=== PATIENT | male | born 1970 | race Caucasian/White ===

== ENCOUNTER 2016-06-25 08:48 | Emergency (ER) | payer OTHER ==
--- NOTE | 2016-06-25 09:06 | CPEKG ---
Heart Rate: 85 RR Interval: 706 P-R Interval: 204 QRSD Interval: 86 QT Interval: 364 QTC Interval: 433 P [place]: 54 QRS [place]: 164 T Wave [place]: 0 EKG Severity - OTHERWISE NORMAL ECG - EKG Impression: SINUS RHYTHM EKG Impression: RIGHT AXIS DEVIATION Electronically Signed By: Kin Littlejohn 25-Jun-2016 14:02:18
[2016-06-25 09:19] LABS: % IMMATURE GRANULYOCYTES 0.5 % (0.0-1.1); ABSOLUTE IMMATURE GRANULOCYTES 0.02 10^3/uL (0.00-0.10); ADD DIFF? NO; ADD MORPH? NO; ADD SCAN? NO; ATYPICAL LYMPHOCYTE FLAG 30 (0-99); FRAGMENT RBC FLAG 0 (0-99); HEMATOCRIT 49.1 % (40.0-51.0); HEMOGLOBIN 17.5 g/dL (13.7-17.5); LEFT SHIFT FLG 0 (0-99); LIPEMIA HEMOLYSIS FLAG 90 (0-99); MEAN CELL HEMOGLOBIN 33.5 pg (27.9-34.1); MEAN CELL HEMOGLOBIN CONCENTR. 35.6 g/dL (32.4-36.7); MEAN CELL VOLUME 94.1 fL (81.5-99.8); MEAN PLATELET VOLUME 10.4 fL (8.7-11.7); PLATELET CLUMPS FLAG 0 (0-99); PLATELET COUNT 266 10^3/uL (150-400); RED BLOOD CELL COUNT 5.22 10^6/uL (4.40-6.38); RED CELL DISTRIBUTION WIDTH 11.9 % (11.5-15.2)
[2016-06-25 09:35] LABS: ANION GAP 11 mEq/L (8-16); CALCIUM 9.4 mg/dL (8.5-10.4); CARBON DIOXIDE 27 mEq/l (22-31); CHLORIDE 103 mEq/L (97-110); CREATININE 1.1 mg/dL (0.7-1.3); GLOMERULAR FILTRATION RATE > 60; GLUCOSE 73 mg/dL (70-100); POTASSIUM 4.2 mEq/L (3.5-5.2); SODIUM 141 mEq/L (134-144)
[2016-06-25 09:46] LABS: TROPONIN I < 0.012 ng/mL (0-0.034)
--- NOTE | 2016-06-25 10:14 | EDPHY ---
H & P Stated Complaint: L side CP intermittent since yesterday Time Seen by Provider: 06/25/16 09:06 HPI/ROS: CHIEF COMPLAINT: Chest pain HISTORY OF PRESENT ILLNESS: The patient presents to the ED with a 1 day history of intermittent left-sided chest pain. The patient describes a sharp a focal area of discomfort located lateral to his pectoralis muscle. The patient reports that pain is not precipitated by exertion or respiration. The patient states that his occurred sporadically over the past day and half. The patient denies any significant past medical history and specifically has no cardiac risk factors. The patient denies asymmetric calf pain or swelling. He has no risk factors for PE or DVT. The patient denies infectious illness or additional acute complaints. The patient is currently asymptomatic. REVIEW OF SYSTEMS: A comprehensive 10 point review of systems is otherwise negative aside from elements mentioned in the history of present illness. Source: Patient Exam Limitations: No limitations - Medical/Surgical History Hx Asthma: No Hx Chronic Respiratory Disease: No Hx Diabetes: No Hx Cardiac Disease: No Hx Renal Disease: No Hx Cirrhosis: No Hx Alcoholism: No Hx HIV/AIDS: No Hx Splenectomy or Spleen Trauma: No Other PMH: denies - Social History Smoking Status: Never smoked - Physical Exam Exam: General Appearance: Alert, no distress Eyes: Pupils equal and round no pallor or injection ENT, Mouth: Mucous membranes moist Respiratory: There are no retractions, lungs are clear to auscultation Cardiovascular: Regular rate and rhythm Gastrointestinal: Abdomen is soft and nontender, no masses, bowel sounds normal Neurological: A&O, normal motor function, normal sensory exam, normal cranial nerves Skin: Warm and dry, no rashes Musculoskeletal: Neck is supple nontender Extremities: symmetrical, full range of motion Constitutional: Initial Vital Signs Temperature (C) 36.8 C 06/25/16 08:50 Heart Rate 90 06/25/16 08:50 Respiratory Rate 18 06/25/16 08:50 Blood Pressure 117/65 06/25/16 08:50 O2 Sat (%) 95 06/25/16 08:50 Allergies/Adverse Reactions: No Known Allergies Allergy (Unverified 06/25/16 08:50) Home Medications: Medication Instructions Recorded NK [No Known Home Meds] 06/25/16 Medical Decision Making - Diagnostics EKG Interpretation: EKG: Complete interpretation has been separately recorded in the [facility] archive. Summary impression: Sinus rhythm, nonspecific T-wave inversions noted in lead III. Imaging: Chest x-ray PA lateral: Images reviewed by myself, negative for acute abnormality. ED Course/Re-evaluation: The patient presents to the ED for evaluation of atypical chest pain over the past 48 hours. The patient's EKG demonstrates nonspecific changes noted in V1 and III. The patient's troponin is normal. The patient's D-dimer is negative which I feel adequately excludes pulmonary embolism. The patient is asymptomatic in the ED. The patient has no risk factors for coronary artery disease. The patient otherwise is healthy. At this point time I do feel the patient is low risk for acute coronary syndrome. The patient is comfortable with outpatient management including close follow up with Cardiology for consideration of treadmill stress testing. The patient does understand to return to the ED for any protracted chest pain, exertional chest pain, worsening symptoms or other concerns. The patient was placed on a cardiac cath rn throughout his stay in the ED and remained asymptomatic without evidence of arrhythmia. Differential Diagnosis: Differential diagnosis considered includes acute coronary syndrome, myocardial infarction, pulmonary embolism, costochondritis, pleurisy, myofascial strain, pneumothorax - Data Points Laboratory Results: Laboratory Results 06/25/16 09:08 06/25/16 09:08 06/25/16 06/25/16 06/25/16 09:08 09:08 09:08 WBC 4.26 10^3/uL 10^3/uL (3.80-9.50) RBC 5.22 10^6/uL 10^6/uL (4.40-6.38) Hgb 17.5 g/dL g/dL (13.7-17.5) Hct 49.1 % % (40.0-51.0) MCV 94.1 fL fL (81.5-99.8) MCH 33.5 pg pg (27.9-34.1) MCHC 35.6 g/dL g/dL (32.4-36.7) RDW 11.9 % % (11.5-15.2) Plt Count 266 10^3/uL 10^3/uL (150-400) MPV 10.4 fL fL (8.7-11.7) Neut % (Auto) 48.2 % % (39.3-74.2) Lymph % (Auto) 38.0 % % (15.0-45.0) Riley % (Auto) 8.9 % % (4.5-13.0) Eos % (Auto) 3.5 % % (0.6-7.6) Baso % (Auto) 0.9 % % (0.3-1.7) Nucleat RBC Rel Count 0.0 % % (0.0-0.2) Absolute Neuts (auto) 2.05 10^3/uL 10^3/uL (1.70-6.50) Absolute Lymphs (auto) 1.62 10^3/uL 10^3/uL (1.00-3.00) Absolute Monos (auto) 0.38 10^3/uL 10^3/uL (0.30-0.80) Absolute Eos (auto) 0.15 10^3/uL 10^3/uL (0.03-0.40) Absolute Basos (auto) 0.04 10^3/uL 10^3/uL (0.02-0.10) Absolute Nucleated RBC 0.00 10^3/uL 10^3/uL (0-0.01) Immature Gran % 0.5 % % (0.0-1.1) Immature Gran # 0.02 10^3/uL 10^3/uL (0.00-0.10) D-Dimer < 0.27 ug/mLFEU ug/mLFEU (0.00-0.50) Sodium 141 mEq/L mEq/L (134-144) Potassium 4.2 mEq/L mEq/L (3.5-5.2) Chloride 103 mEq/L mEq/L (97-110) Carbon Dioxide 27 mEq/l mEq/l (22-31) Anion Gap 11 mEq/L mEq/L (8-16) BUN 14 mg/dL mg/dL (7-23) Creatinine 1.1 mg/dL mg/dL (0.7-1.3) Estimated GFR > 60 Glucose 73 mg/dL mg/dL (70-100) Calcium 9.4 mg/dL mg/dL (8.5-10.4) Troponin I < 0.012 ng/mL ng/mL (0-0.034) Departure - Departure Disposition: Home, Routine, Self-Care Clinical Impression: Chest pain Condition: Good Instructions: Chest Pain (ED) Additional Instructions: 1. Based upon the testing done in the Emergency Department today we see no evidence of a heart attack. 2. We are unable to fully exclude coronary artery disease based upon the testing available in the Emergency Department. 3. For this reason, we would like you to be seen by cardiology for consideration of additional testing within the next 3 days. 4. Please contact the frame stripper you have been referred to schedule this appointment as soon as possible. Their offices are typically open from 8:30am- 5pm M-F. You have been referred to Dr. Yamile Adan who is on-call for us today. 5. Please return to the Emergency Department immediately for any recurrent chest pain, difficulty breathing or other concerns. Referrals: Tavon Arredondo DO [Primary Care Provider] - As per Instructions Yamile Adan MD [Medical Doctor] - As per Instructions
[2016-06-25 10:37] VITALS: BP 116/84; PULSE 76; RESP 16; TEMP 98.1; O2SAT 94
== END 2016-06-25 10:37 | disposition home or self-care (01) ==
DX: R07.89 Other chest pain (principal)

== ENCOUNTER → 2018-07-30 | Outpatient (CLI) | payer OTHER | LOC: EMCIMAGING 07:31 | PROVIDERS: ATTEND Otolaryngology | DX: J34.2 Deviated nasal septum (principal); J32.0 Chronic maxillary sinusitis | CPT/HCPCS: 70486-PN ==